=== PATIENT | female | born 1955 | race Caucasian/White ===

== ENCOUNTER 2016-11-03 13:57 | Emergency (ER) | payer OTHER ==
[~2016-11-03] VITALS: Wt 63.5 kg
[~2016-11-03 13:57] MED LIST: ALBU8.5H3 INH; AZIT250T94 PO; HYDR15SO8 PO; PRED20TA PO
--- NOTE | 2016-11-03 14:26 | EN ---
Date/Time of Note Date/Time of Note DATE: 11/03/16 TIME: 14:25 ER Progress Note Patient was examined in Flu track but will be sent to ED 2 for more evaluation. KENDRA NUÑEZ PA-C Nov 03, 2016 14:26
--- NOTE | 2016-11-03 15:22 | RADRPT ---
PROCEDURE: XR Chest. CLINICAL INDICATION: Cough. TECHNIQUE: Single frontal view. COMPARISON: None. FINDINGS: The lungs are clear. The heart size is normal. There is calcification in the aorta consistent with atherosclerosis. There is no pleural effusion. There is no pneumothorax. IMPRESSION: 1. Atherosclerosis. 2. Otherwise normal chest radiograph. RPTAT: QQ .Vasu Falk MD, MD Date Time Electronically viewed and signed by .Vasu Falk MD, MD on 11/03/2016 15:21 .R/
[2016-11-03] MEDS ORDERED: ACET500C5 PO (15:42)
[2016-11-03] MEDS ORDERED: BENZ100C70 PO (15:42)
--- NOTE | 2016-11-03 15:56 | ERD ---
ER Documentation Chief Complaint Date/Time DATE: 11/03/16 TIME: 15:49 Chief Complaint cough congestion and dry cough for thepast week. HPI Patient is a 61-year-old female with a past medical history of diabetes who presents to the ED for cough, congestion, body aches and tactile fevers for 1 day. She states that she had 2 episodes of non bloody non bilious post tussive emesis. She states that her symptoms started last night. She also states that she had one episode of dizziness today. She denies passing out, losing consciousness. She denies headache. She denies fever or chills. She denies abdominal pain, nausea, vomiting or diarrhea. She denies change in appetite. Denies urinary symptoms. Eyes constipation. Last bowel movement was today and is passing gas. Denies chest pain, shortness of breath or difficulty breathing. Patient does not have leg pain or swelling. Denies recent travel. Denies use of OCPs. ROS All systems reviewed and are negative except as per history of present illness. Medications Home Meds Active Scripts Acetaminophen* (Tylophen*) 500 Mg Capsule, 1 CAP PO Q6H Y for PAIN AND OR ELEVATED TEMP, #20 CAP Prov:KENDRA NUÑEZ PA-C 11/03/16 Benzonatate* (Tessalon Perle*) 100 Mg Capsule, 100 MG PO Q8H Y for COUGH for 14 Days, CAP Prov:KENDRA NUÑEZ PA-C 11/03/16 Hydrocodone Bit-Acetaminophen* (Lortab* Liq) 7.5 Mg-500 Mg/15 Ml Solution, 15 ML PO Q6H Y for COUGH, #90 ML Prov:IKER FARNSWORTH DO 03/18/16 Prednisone* (Prednisone*) 20 Mg Tab, 60 MG PO DAILY for 5 Days, TAB Prov:IKER FARNSWORTH DO 03/18/16 Albuterol Sulfate* (Proair HFA*) 8.5 Gm Hfa.aer.ad, 2 PUFF INH Q4, #1 INHALER Prov:IKER FARNSWORTH DO 03/18/16 Azithromycin* (Zithromax*) 250 Mg Tablet, 250 MG PO .CARLOS MANUEL DIRECTED, #6 TAB TAKE 500 MG (2 TABS) THE FIRST DAY THEN 250 MG (1 TAB) DAYS 2-5 Prov:IKER FARNSWORTH DO 03/18/16 Allergies Allergies: Coded Allergies: No Known Allergy (Unverified , 03/18/16) PMhx/Soc Medical and Surgical Hx: pt denies Medical Hx, pt denies Surgical Hx History of Surgery: No Anesthesia Reaction: No Hx Neurological Disorder: No Hx Respiratory Disorders: No Hx Cardiac Disorders: No Hx Psychiatric Problems: No Hx Miscellaneous Medical Probl: No Hx Alcohol Use: No Hx Substance Use: No Hx Tobacco Use: No Smoking Status: Never smoker Physical Exam Vitals Vital Signs Date Time Temp Pulse Resp B/P Pulse Ox O2 Delivery O2 Flow Rate FiO2 11/03/16 14:00 99.8 99 20 138/64 96 Physical Exam GENERAL: Well-developed, well-nourished female. Appears in no acute distress. HEAD: Normocephalic, atraumatic. EYES: Pupils are equally reactive bilaterally. EOMs grossly intact. No conjunctival erythema. ENT: Moist mucous membranes. No uvula deviation. No kissing tonsils. No exudates. NECK: Supple. No lymphadenopathy or thyromegaly. No meningismus. negative kernig. negative brudinski. LUNG: Clear to auscultation bilaterally. No rhonchi, wheezing, rales or coarse breath sounds. HEART: Regular rate and rhythm. No murmurs, rubs or gallops. ABDOMEN: No scars, ecchymosis or rashes noted. Soft, nontender, and nondistended. Positive bowel sounds in all four quadrants. No rebound tenderness , no guarding. (-) McBurneys point tenderness. No CVA tenderness. BACK: No midline tenderness. Extremities: Equal pulses bilaterally. No peripheral clubbing, cyanosis or edema. No unilateral leg swelling. NEUROLOGIC: Alert and oriented. Moving all four extremities. 5/5 strength in all extremities. Normal speech. Steady gait. SKIN: Normal color. Warm and dry. No rashes or lesions. Capillary refill < 2 seconds Results 24 hrs Laboratory Tests Test 11/03/16 15:39 Bedside Glucose 226mg/dL Procedures/MDM ER COURSE: I kept the patient and/or family informed of laboratory and diagnostic imaging results throughout the emergency room course. EKG, MONITORS, & DIAGNOSTIC IMAGING: [place] [address] Rad[facility] Main Line: [phone] DIAGNOSTIC IMAGING REPORT Patient: SONYA RUDD : 1955 Age: 61 Sex: F MR #: [id number] DOS: 11/03/16 1447 Ordering MD: KENDRA NUÑEZ PA-C Location: [facility] Room/Bed: PROCEDURE: XR Chest. CLINICAL INDICATION: Cough. TECHNIQUE: Single frontal view. COMPARISON: None. FINDINGS: The lungs are clear. The heart size is normal. There is calcification in the aorta consistent with atherosclerosis. There is no pleural effusion. There is no pneumothorax. IMPRESSION: 1. Atherosclerosis. 2. Otherwise normal chest radiograph. RPTAT: QQ .Vasu Falk MD, MD Date Time Electronically viewed and signed by .Vasu Falk MD, on 11/03/2016 15:21 .R/ CC: KENDRA NUÑEZ PA-C EKG performed, read by Dr. urbano 98 bpm, normal sinus rhythm, normal axis, no acute ST segment changes, no T wave inversion Accucheck: 226 MEDICAL DECISION MAKING: This is a 61-year-old female who presents with cough, congestion, tactile fevers for one day. Vital signs were reviewed. Patient is afebrile. Patient is not hypoxic. Patient is not toxic or ill-appearing. Patient likely has a URI of viral etiology. Low suspicion for pneumonia, PE, pneumothorax, ACS, epiglottitis, obstruction, TB, pertussis, meningitis, sepsis. Low suspicion for ACS, PE, AAA, dissection, DVT. Low suspicion for ACS, AAA, perforated ulcer , bowel obstruction, cholecystitis, choledocholithiasis, cholangitis, pancreatitis, hepatic abscess, appendicitis, diverticulitis, nephrolithiasis, septic stone, obstructed stone. I have low suspicion for DKA, HONK. I have consulted with Dr. Barahona who agrees with the plan. Patient can be treated outpatient only. Patient is aware that she has diabetes and has a blood sugar of 226 in the ED. Patient takes metformin. I have low suspicion for PE. I do not think patient needs to be admitted at this time. DISCHARGE: At this time, patient is stable for discharge and outpatient management with no new complaints during the ER course. Patient was sent home with Tessalon Perles , Tylenol. Patient will be discharged home with instructions to recheck for new or worsening symptoms such as fever, nausea, weakness, LOC and to follow up with primary care in the next 1-2 days. Patient was advised to return to the ER for any new or worsening symptoms. Plan was discussed and patient and/or family understands and agrees. Home instructions were given. Departure Diagnosis: Primary Impression: Upper respiratory infection URI type: unspecified URI Qualified Code: J06.9 - Upper respiratory tract infection, unspecified type Condition: Stable Patient Instructions: Preventing Common Respiratory Infections Additional Instructions: Llame al doctor MAANA y briana black DENISHA PARA DENTRO DE 1-2 MARTINEZ.Dgale a la secretaria que nosotros le instruimos hacer esta denisha.Avise o llame si osorio condicin se empeora antes de la denisha. Regresa aqui si peor o no mejor. KENDRA NUÑEZ PA-C Nov 03, 2016 15:55
== END 2016-11-03 15:49 | disposition home or self-care (01) ==
LOC: FTE 13:57
DX: J06.9 Acute upper respiratory infection, unspecified (principal); E11.9 Type 2 diabetes mellitus without complications; R42 Dizziness and giddiness
CPT/HCPCS: 71010; 82962; Z7502; 93005

== ENCOUNTER 2017-06-20 13:40 | Emergency (ER) | payer OTHER ==
[~2017-06-20] VITALS: Ht 152.4 cm; Wt 62.0 kg
[~2017-06-20 13:40] MED LIST changes: +ACET500C5 PO; +BENZ100C70 PO
[2017-06-20 13:43] VITALS: Ht 152.4 cm; Wt 62.0 kg
[2017-06-20] MEDS ORDERED: NAPROXEN 500 MG TAB PO STA (14:59)
--- NOTE | 2017-06-20 15:04 | ERD ---
ER Documentation Chief Complaint Date/Time DATE: 06/20/17 TIME: 15:03 Chief Complaint fell on sunday c/o r hip pain radiating to leg HPI 62-year-old female history of diabetes type 2 presenting to the emergency department complaining of right buttock, hip pain that radiates down her leg since she had a ground-level fall on Sunday. Patient states the pain is 8-9 out of 10, increased with movement. Patient states that she has taken Tylenol last dose at 12 today without much relief. She states that she is able to walk but blocks with pain. Eyes any numbness or tingling ROS All systems reviewed and are negative except as per history of present illness. Medications Home Meds Active Scripts Naproxen* (Naprosyn*) 500 Mg Tablet, 500 MG PO BID Y for PAIN AND/OR INFLAMMATION, #30 TAB Prov:ANMOL SADLER PA-C 06/20/17 Acetaminophen* (Tylophen*) 500 Mg Capsule, 1 CAP PO Q6H Y for PAIN AND OR ELEVATED TEMP, #20 CAP Prov:KENDRA NUÑEZ PA-C 11/03/16 Benzonatate* (Tessalon Perle*) 100 Mg Capsule, 100 MG PO Q8H Y for COUGH for 14 Days, CAP Prov:KENDRA NUÑEZ PA-C 11/03/16 Hydrocodone Bit-Acetaminophen* (Lortab* Liq) 7.5 Mg-500 Mg/15 Ml Solution, 15 ML PO Q6H Y for COUGH, #90 ML Prov:IKER FARNSWORTH DO 03/18/16 Prednisone* (Prednisone*) 20 Mg Tab, 60 MG PO DAILY for 5 Days, TAB Prov:IKER FARNSWORTH DO 03/18/16 Albuterol Sulfate* (Proair HFA*) 8.5 Gm Hfa.aer.ad, 2 PUFF INH Q4, #1 INHALER Prov:IKER FARNSWORTH DO 03/18/16 Azithromycin* (Zithromax*) 250 Mg Tablet, 250 MG PO .ZPACK DIRECTED, #6 TAB TAKE 500 MG (2 TABS) THE FIRST DAY THEN 250 MG (1 TAB) DAYS 2-5 Prov:IKER FARNSWORTH DO 03/18/16 Allergies Allergies: Coded Allergies: Penicillins (Verified Allergy, Unknown, RASH, 06/20/17) PMhx/Soc History of Surgery: No Anesthesia Reaction: No Hx Neurological Disorder: No Hx Respiratory Disorders: No Hx Cardiac Disorders: No Hx Psychiatric Problems: No Hx Miscellaneous Medical Probl: No Hx Alcohol Use: No Hx Substance Use: No Hx Tobacco Use: No Physical Exam Vitals Vital Signs Date Time Temp Pulse Resp B/P Pulse Ox O2 Delivery O2 Flow Rate FiO2 06/20/17 13:43 98.2 100 20 133/71 98 Physical Exam General: WD/WN, in no apparent distress, non-toxic appearing HENT: NC/AT Eyes: Conjunctiva normal Neck: Supple Pulm: Clear to auscultation, normal labored breathing; no wheezing/rales/ rhonchi heard CV: Good capillary refill GI: Non-distended, no guarding Back: No masses Ext: Tenderness palpation over the right hip and buttock, patient walks with a limp Neuro: Moves on all fours Skin: intact Psych: Normal mood Results 24 hrs Current Medications Medications (Trade) Dose Ordered Sig/Peri Route PRN Reason Start Time Stop Time Status Last Admin Dose Admin Naproxen (Naprosyn) 500 mg ONCE STAT PO 06/20/17 14:59 06/20/17 15:02 DC 06/20/17 15:13 Procedures/MDM 62-year-old female history of diabetes type 2 presenting to the emergency department complaining of right buttock, hip pain that radiates down her leg since she had a ground-level fall on Sunday. Patient sustained a contusion, I have a low suspicion for any fracture or dislocation. Patient was able to ambulate. An x-ray of the right hip was done did not show any evidence of fracture dislocation. Patient was given prescription for naproxen and I discussed with her to follow-up with her primary care physician. Patient understands and agrees this plan. Neurovascularly intact to be discharged home Departure Diagnosis: Primary Impression: Hip pain Additional Impression: Hip injury Condition: Stable ANMOL SADLER PA-C Jun 20, 2017 15:04
[2017-06-20] MEDS ORDERED: NAPR-260 PO (15:07)
--- NOTE | 2017-06-20 15:45 | RADRPT ---
PROCEDURE: Right hip series CLINICAL INDICATION: Right hip pain. TECHNIQUE: Two views of the right hip are submitted COMPARISON: None FINDINGS: The right hip appears aligned without evidence of fractures, dislocations or osteolytic lesions. Ac etabulum appears intact.. IMPRESSION: Normal RPTAT: GG .Rk Lew MD, Date Time Electronically viewed and signed by .Rk Lew MD, on 06/20/2017 15:45 .L/
== END 2017-06-20 16:06 | disposition home or self-care (01) ==
LOC: FTE 13:40
DX: S79.911A Unspecified injury of right hip, initial encounter (principal); E11.9 Type 2 diabetes mellitus without complications; W18.39XA Other fall on same level, initial encounter; Y92.9 Unspecified place or not applicable
CPT/HCPCS: 73510; Z7502; Z7610

== ENCOUNTER 2018-05-08 19:54 | Emergency (ER) | END 2018-05-09 01:50 | disposition home or self-care (01) ==

== ENCOUNTER 2018-09-11 14:17 | Emergency (ER) | END 2018-09-11 16:57 | disposition home or self-care (01) ==

== ENCOUNTER 2018-10-02 18:45 | Emergency (ER) | payer OTHER ==
[~2018-10-02] VITALS: Ht 149.9 cm; Wt 66.0 kg
[~2018-10-02 18:45] MED LIST changes: -ALBU8.5H3 INH; -AZIT250T94 PO; -BENZ100C70 PO; +FLUT16SP17 NASAL; +HYDR-4011 PO; -HYDR15SO8 PO; +IBUP-1561 PO; +LEVO25TA6 PO; +NAPR-688 PO; -PRED20TA PO
[2018-10-02 19:16] VITALS: BP 178/74; PULSE 80; RESP 18; Ht 149.9 cm; Wt 66.0 kg
[2018-10-02] MEDS ORDERED: NAPROXEN 500 MG TAB PO ONE (20:30)
[2018-10-02] MEDS ORDERED: NAPR-985 PO (20:31)
--- NOTE | 2018-10-02 20:37 | ERD ---
ER Documentation Chief Complaint Chief Complaint ground level around 1400, c/o facial pain, left knee HPI 63-year-old female presents the ED complaining of pain in her face, left shoulder, left knee after a ground-level fall. Patient states that she tripped over something on the ground and fell face forward. She is able to bear weight and walk without difficulty after fall. No problem moving her upper extremities either. Denies LOC, nausea or vomiting. Patient has history of diabetes, denies any other medical history. ROS All systems reviewed and are negative except as per history of present illness. Medications Home Meds Active Scripts Naproxen* (Naprosyn*) 500 Mg Tablet, 500 MG PO BID PRN for PAIN AND/OR INFLAMMATION, #30 TAB Prov:BRIE SALCEDO NP 10/02/18 Ibuprofen* (Motrin*) 400 Mg Tab, 400 MG PO Q8, #20 TAB Prov:NAYELY IGLESIAS MD 09/11/18 Hydrocodone/Acetaminophen ([place] 5-325 Tablet) 1 Each Tablet, 1 TAB PO BID PRN for PAIN, #10 TAB Prov:NAYELY IGLESIAS MD 09/11/18 Naproxen* (Naproxen*) 500 Mg Tablet, 500 MG PO BID PRN for PAIN, #20 TAB Prov:ASHWIN FRANCIS DO 05/09/18 Acetaminophen* (Tylophen*) 500 Mg Capsule, 1 CAP PO Q6H PRN for PAIN AND OR ELEVATED TEMP, #20 CAP Prov:KENDRA NUÑEZ PA-C 11/03/16 Reported Medications Levothyroxine Sodium* (Levothyroxine Sodium*) 25 Mcg Tablet, 25 MCG PO BEFORE BREAKFAST, #30 TAB 05/09/18 Fluticasone Propionate* (Fluticasone Propionate* Nasal) 50 Mcg/Caribou - 16 Gm Caribou.susp, 1 SPRAY NASAL DAILY, #1 BOTTLE TO EACH NOSTRIL 05/09/18 Allergies Allergies: Coded Allergies: Penicillins (Verified Allergy, Unknown, RASH, 09/11/18) INJECTABLE PENICILLINS, PATIENT CAN TAKE TABLET FORMS PMhx/Soc History of Surgery: Yes (RT ARM ) Anesthesia Reaction: No Hx Neurological Disorder: No Hx Respiratory Disorders: No Hx Cardiac Disorders: Yes (HTN) Hx Psychiatric Problems: No Hx Miscellaneous Medical Probl: Yes (DM ) Hx Alcohol Use: No Hx Substance Use: No Hx Tobacco Use: No Smoking Status: Never smoker Physical Exam Vitals Vital Signs Date Temp Pulse Resp B/P (MAP) Pulse Ox O2 O2 Flow FiO2 Time Delivery Rate 10/02/18 97.5 80 18 178/74 100 19:16 (108) Physical Exam General: Patient is well-developed. Awake, alert, and conversant, in no apparent distress Skin: Warm and dry Head: Normocephalic, atraumatic without palpable deformities Eyes: Pupils equal, round, and reactive to light. Extraocular movements intact. No periorbital ecchymosis or step-off Nose/face: Atraumatic. Facial bones are nontender to palpation and stable with attempts at manipulation. Slight abrasion noted in the left cheek, mild tenderness at the left chin. Neck: No midline point tenderness, step-off, or deformity to firm palpation of posterior cervical spine. Trachea midline. Carotids equal. No masses. No JVD. Full range of motion of the neck without limitation or pain Chest: No surface trauma. Nontender without crepitus or deformity. No palpable subcutaneous air. Lungs have good tidal volume, lungs clear to auscultate bilaterally Heart: Regular rate and rhythm. No murmur, rub, or gallop Extremities: No surface trauma. Full range of motion without limitation or pain. Good strength in all extremities. Sensation to light touch intact. All peripheral pulses are intact and equal Neuro: Alert and oriented 4, GCS 15 Results 24 hrs Current Medications Medications Dose Sig/Peri Start Time Status Last (Trade) Ordered Route PRN Stop Time Admin Dose Reason Admin Naproxen 500 mg ONCE ONCE 10/02/18 DC (Naprosyn) PO 20:30 10/02/18 20:31 Procedures/MDM Well-appearing 63-year-old female presents the ED after a ground-level fall earlier today. Her exams are unremarkable, I doubt fractures or dislocations. I doubt head injury. I doubt facial or skull fracture. Patient is given naproxen p.o. in the ED for pain. Patient appears well, stable for discharge and outpatient management. Medical decision making shared with patient and family. Education provided to patient and family. Patient and family expressed understanding of the plan. Medications on discharge: Naproxen. Follow-up: Primary care provider in 1 week or return to ED if worse. Disclaimer: Inadvertent spelling and grammatical errors are likely due to EHR/dictation software use and do not reflect on the overall quality of patient care. Also, please note that the electronic time recorded on this note does not necessarily reflect the actual time of the patient encounter. Departure Diagnosis: Primary Impression: Fall with no significant injury Encounter type: initial encounter Qualified Codes: W19.XXXA - Unspecified fall, initial encounter Additional Impression: Contusion Encounter type: initial encounter Condition: Stable Patient Instructions: Contusions (Bruises), Fall Prevention Referrals: [facility] Usted se sunshine hecho un examen mdico de control que le indica que no est en black condicin que requiera tratamiento urgente en el Departamento de Emergencia. Un estudio ms profundo y el tratamiento de osorio condicin pueden esperar sin ningn riesgo hasta que usted sea atendida/o en el consultorio de osorio mdico o black clnica. Es responsabilidad suya arreglar black denisha para el seguimiento del lucia. MANEJO DE CONDICIONES NO URGENTES EN EL FUTURO 1) Si usted tiene un mdico de atencin primaria: Usted debera llamar a osorio mdico de atencin primaria antes de venir al departamento de emergencia. Despus de las horas de consultorio, osorio doctor o osorio asociado/a est disponible por telfono. El mdico o enfermero de delgado en el servicio telefnico puede asesorarle por lizbeth medio para atender el problema, o lucia contrario se puede programar black denisha. 2) Si usted no tiene un mdico de atencin primaria: Llame al mdico o clnica de referencia que aparece abajo michelle las horas de consultorio para hacer black denisha para que le vean. CLINICAS: [facility] [phone] [id number] [facility] [phone] [facility] [phone] [facility] [phone] [place] [id number] [phone] [facility]. [phone] [address] Additional Instructions: Llame al doctor nombrado abajo (Referral Sources) MAANA y briana black DENISHA PARA DENTRO DE BLACK SEMANA. Dgale a la secretaria que nosotros le instruimos hacer esta denisha.Avise o llame si osorio condicin se empeora antes de la denisha. BRIE SALCEDO. DWIGHT Oct 02, 2018 20:37
== END 2018-10-02 21:08 | disposition home or self-care (01) ==
LOC: FTE 18:45
DX: S00.83XA Contusion of other part of head, initial encounter (principal); I10 Essential (primary) hypertension; E11.9 Type 2 diabetes mellitus without complications; W01.0XXA Fall on same level from slipping, tripping and stumbling without subsequent striking against object, initial encounter; Y92.9 Unspecified place or not applicable
CPT/HCPCS: Z7502; Z7610; 99283